=== PATIENT | female | born 1990 | race Caucasian/White ===

== ENCOUNTER 2018-01-10 23:17 | Emergency (ER) | payer OTHER ==
[2018-01-11] MEDS ORDERED: SODIUM CHLORIDE 0.9% 1,000 ML IV STA (00:41)
[2018-01-11] MEDS ORDERED: ONDANSETRON 4 MG/2 ML VIAL IVP STA (00:41)
[2018-01-11] MEDS ORDERED: KETOROLAC 30 MG/ML 1 ML VIAL IVP STA (00:41)
--- NOTE | 2018-01-11 00:57 | ED ---
Abdominal Pain HPI - General Source: patient Mode of arrival: wheelchair Limitations: physical limitation <Estrella Laguna - Last Filed: 01/11/18 02:39> <Quique Concepcion - Last Filed: 01/11/18 04:53> - General Chief Complaint: Abdominal Pain Stated Complaint: Chest and abd pain Time Seen by Provider: 01/11/18 00:25 - History of Present Illness Initial Comments: 27-year-old female patient presents to the emergency department today for evaluation of multiple complaints. Patient states that for the last 3 days she has been experiencing right-sided abdominal pain and diarrhea. Patient states that she is also experiencing shooting "nerve pains" throughout her body. Patient states that the nerve pain has been going on for quite some time but seems to be getting worse. Patient states that the pain is in her right lower quadrant and right flank. Patient states the pain into her abdomen versus when she urinates. She denies any hematuria, dysuria, urinary frequency, urinary urgency. Patient is also reporting midepigastric discomfort that has been going on for quite some time as well. She is unable to give an exact estimated on timeframe. Patient states that she wakes up every morning with nausea and also has burning sharp pain to the midepigastric region especially with eating. She denies any fevers or chills. Denies any chance of . States her last period was 12/25/2017. Denies any abnormal vaginal bleeding or discharge. Denies any dyspareunia. Patient is also complaining of depression. States that she has been depressed for many months. States she is suicidal. She states "I am sick of living like this and wished someone would just kill me". Patient states that she has had increased anxiety and mood swings. Denies taking anything currently for depression, anxiety, or seeking counseling. ( Estrella Laguna) - Related Data Previous Rx's Medication Instructions Recorded HYDROcodone/APAP 5-325MG [[place] 5] 1 each PO Q4HR PRN #12 tab 02/02/15 Allergies Allergy/AdvReac Type Severity Reaction Status Date / Time clonazepam [From Klonopin] Allergy Swelling Verified 01/10/18 23:28 lorazepam [From Ativan] AdvReac Diarrhea Verified 01/10/18 23:28 Review of Systems ROS Other: All systems not noted in ROS Statement are negative. <Estrella Laguna - Last Filed: 01/11/18 02:39> ROS Other: All systems not noted in ROS Statement are negative. <Quique Concepcion - Last Filed: 01/11/18 04:53> ROS Statement: Those systems with pertinent positive or pertinent negative responses have been documented in the HPI. Past Medical History Past Medical History: No Reported History Additional Past Medical History / Comment(s): glaucoma melissa disease, History of Any Multi-Drug Resistant Organisms: None Reported Past Surgical History: Section Past Psychological History: Anxiety, Bipolar, Depression Smoking Status: Current every day smoker Past Alcohol Use History: None Reported Past Drug Use History: Marijuana <Estrella Laguna - Last Filed: 01/11/18 02:39> General Exam Limitations: physical limitation General appearance: alert, in no apparent distress, other (This is a well- developed, well-nourished adult female patient in no acute distress. Vital signs upon presentation are temperature 98.1F, pulse 95, respirations 18, blood pressure 107/68, pulse ox 99% on room air.) Eye exam: Present: normal appearance, PERRL, EOMI. Absent: scleral icterus, conjunctival injection, periorbital swelling ENT exam: Present: normal exam, normal oropharynx, mucous membranes moist Neck exam: Present: normal inspection. Absent: tenderness, meningismus, lymphadenopathy Respiratory exam: Present: normal lung sounds bilaterally. Absent: respiratory distress, wheezes, rales, rhonchi, stridor Cardiovascular Exam: Present: regular rate, normal rhythm, normal heart sounds. Absent: systolic murmur, diastolic murmur, rubs, gallop, clicks GI/Abdominal exam: Present: soft, tenderness (right lower quadrant tenderness), normal bowel sounds. Absent: distended, guarding, rebound, rigid Back exam: Present: normal inspection. Absent: CVA tenderness (R), CVA tenderness (L) Neurological exam: Present: alert, oriented X3, CN II-XII intact Psychiatric exam: Present: normal affect, normal mood Skin exam: Present: warm, dry, intact, normal color. Absent: rash <Estrella Laguna - Last Filed: 01/11/18 02:39> Vital Signs 01/10/18 01/11/18 23:22 01:18 Temperature 98.1 F Pulse Rate 95 Respiratory 18 16 Rate Blood Pressure 107/68 O2 Sat by Pulse 99 Oximetry Medical Decision Making - Lab Data Result diagrams: 01/11/18 00:52 01/11/18 00:52 <Estrella Laguna - Last Filed: 01/11/18 02:39> - Lab Data Result diagrams: 01/11/18 00:52 01/11/18 00:52 <Quique Concepcion - Last Filed: 01/11/18 04:53> - Medical Decision Making 0215: 27-year-old female patient presents to the emergency department today for complaints of generalized abdominal pain mostly over the midepigastric region and the right flank. Physical examination did reveal some mild right-sided abdominal tenderness with some midepigastric tenderness. Labs reviewed and are relatively unremarkable. Patient symptoms are consistent with a gastritis or peptic ulcer disease as she does feel nauseated in the mornings and her pain worsens after eating. She is advised to take Pepcid [id number] at least once daily. She is instructed to follow-up outpatient with gastroenterology for further evaluation and possible endoscopy. Patient is also complaining of suicidal ideation. She is medically clear at this time, EPS has been notified that she is ready for evaluation. (Estrella Laguna) - Lab Data Lab Results 01/10/18 01/10/18 01/11/18 Range/Units 23:29 23:29 00:52 WBC (3.8-10.6) k/uL RBC (3.80-5.40) m/uL Hgb (11.4-16.0) gm/dL Hct (34.0-46.0) % MCV (80.0-100.0) fL MCH (25.0-35.0) pg MCHC (31.0-37.0) g/dL RDW (11.5-15.5) % Plt Count (150-450) k/uL Neutrophils % % Lymphocytes % % Monocytes % % Eosinophils % % Basophils % % Neutrophils # (1.3-7.7) k/uL Lymphocytes # (1.0-4.8) k/uL Monocytes # (0-1.0) k/uL Eosinophils # (0-0.7) k/uL Basophils # (0-0.2) k/uL Sodium 138 (137-145) mmol/L Potassium 4.2 (3.5-5.1) mmol/L Chloride 107 (98-107) mmol/L Carbon Dioxide 24 (22-30) mmol/L Anion Gap 7 mmol/L BUN 12 (7-17) mg/dL Creatinine 0.73 (0.52-1.04) mg/dL Est GFR (CKD-EPI)AfAm >90 (>60 ml/min/1.73 sqM) Est GFR (CKD-EPI)NonAf >90 (>60 ml/min/1.73 sqM) Glucose 90 (74-99) mg/dL Calcium 8.9 (8.4-10.2) mg/dL Total Bilirubin 0.4 (0.2-1.3) mg/dL AST 22 (14-36) U/L ALT 39 (9-52) U/L Alkaline Phosphatase 38 (38-126) U/L Total Protein 6.4 (6.3-8.2) g/dL Albumin 4.1 (3.5-5.0) g/dL Amylase 54 (30-110) U/L Lipase 73 (23-300) U/L TSH 1.530 (0.465-4.680) mIU/L Urine Color Yellow Urine Appearance Cloudy H (Clear) Urine pH 6.0 (5.0-8.0) Ur Specific [place] 1.024 (1.001-1.035) Urine Protein Trace H (Negative) Urine Glucose (UA) Negative (Negative) Urine Ketones Negative (Negative) Urine Blood Negative (Negative) Urine Nitrite Negative (Negative) Urine Bilirubin Negative (Negative) Urine Urobilinogen 2.0 (<2.0) mg/dL Ur Leukocyte Esterase Negative (Negative) Urine RBC 1 (0-5) /hpf Urine WBC 4 (0-5) /hpf Ur Squamous Epith Cells 16 H (0-4) /hpf Urine Bacteria Rare H (None) /hpf Urine Mucus Few H (None) /hpf Urine HCG, Qual Not Detected (Not Detectd) Urine Opiates Screen Not Detected (NotDetected) Ur Oxycodone Screen Not Detected (NotDetected) Urine Methadone Screen Not Detected (NotDetected) Ur Propoxyphene Screen Not Detected (NotDetected) Ur Barbiturates Screen Not Detected (NotDetected) U Tricyclic Antidepress Not Detected (NotDetected) Ur Phencyclidine Scrn Not Detected (NotDetected) Ur Amphetamines Screen Not Detected (NotDetected) U Methamphetamines Scrn Not Detected (NotDetected) U Benzodiazepines Scrn Not Detected (NotDetected) Urine Cocaine Screen Not Detected (NotDetected) U Marijuana (THC) Screen Detected H (NotDetected) Serum Alcohol <10 mg/dL 01/11/18 Range/Units 00:52 WBC 7.7 (3.8-10.6) k/uL RBC 4.32 (3.80-5.40) m/uL Hgb 13.2 (11.4-16.0) gm/dL Hct 40.6 (34.0-46.0) % MCV 94.0 (80.0-100.0) fL MCH 30.5 (25.0-35.0) pg MCHC 32.5 (31.0-37.0) g/dL RDW 12.4 (11.5-15.5) % Plt Count 232 (150-450) k/uL Neutrophils % 56 % Lymphocytes % 34 % Monocytes % 5 % Eosinophils % 3 % Basophils % 1 % Neutrophils # 4.3 (1.3-7.7) k/uL Lymphocytes # 2.7 (1.0-4.8) k/uL Monocytes # 0.4 (0-1.0) k/uL Eosinophils # 0.2 (0-0.7) k/uL Basophils # 0.0 (0-0.2) k/uL Sodium (137-145) mmol/L Potassium (3.5-5.1) mmol/L Chloride (98-107) mmol/L Carbon Dioxide (22-30) mmol/L Anion Gap mmol/L BUN (7-17) mg/dL Creatinine (0.52-1.04) mg/dL Est GFR (CKD-EPI)AfAm (>60 ml/min/1.73 sqM) Est GFR (CKD-EPI)NonAf (>60 ml/min/1.73 sqM) Glucose (74-99) mg/dL Calcium (8.4-10.2) mg/dL Total Bilirubin (0.2-1.3) mg/dL AST (14-36) U/L ALT (9-52) U/L Alkaline Phosphatase (38-126) U/L Total Protein (6.3-8.2) g/dL Albumin (3.5-5.0) g/dL Amylase (30-110) U/L Lipase (23-300) U/L TSH (0.465-4.680) mIU/L Urine Color Urine Appearance (Clear) Urine pH (5.0-8.0) Ur Specific [place] (1.001-1.035) Urine Protein (Negative) Urine Glucose (UA) (Negative) Urine Ketones (Negative) Urine Blood (Negative) Urine Nitrite (Negative) Urine Bilirubin (Negative) Urine Urobilinogen (<2.0) mg/dL Ur Leukocyte Esterase (Negative) Urine RBC (0-5) /hpf Urine WBC (0-5) /hpf Ur Squamous Epith Cells (0-4) /hpf Urine Bacteria (None) /hpf Urine Mucus (None) /hpf Urine HCG, Qual (Not Detectd) Urine Opiates Screen (NotDetected) Ur Oxycodone Screen (NotDetected) Urine Methadone Screen (NotDetected) Ur Propoxyphene Screen (NotDetected) Ur Barbiturates Screen (NotDetected) U Tricyclic Antidepress (NotDetected) Ur Phencyclidine Scrn (NotDetected) Ur Amphetamines Screen (NotDetected) U Methamphetamines Scrn (NotDetected) U Benzodiazepines Scrn (NotDetected) Urine Cocaine Screen (NotDetected) U Marijuana (THC) Screen (NotDetected) Serum Alcohol mg/dL Disposition <Estrella Laguna - Last Filed: 01/11/18 02:39> Is patient prescribed a controlled substance at d/c from ED?: No <Quique Concepcion - Last Filed: 01/11/18 04:53> Clinical Impression: Abdominal pain, Mood disorder Disposition: HOME SELF-CARE Condition: Good Instructions: Abdominal Pain (ED), Mood Disorders (ED) Referrals: None,Stated [Primary Care Provider] - 1-2 days
[2018-01-11 01:08] LABS: Basophils % (A) 1 %; Eosinophils # (A) 0.2 k/uL (0-0.7); Eosinophils % (A) 3 %; HCT 40.6 % (34.0-46.0); HGB 13.2 gm/dL (11.4-16.0); Lymphocytes # (A) 2.7 k/uL (1.0-4.8); Lymphocytes % (A) 34 %; MCH 30.5 pg (25.0-35.0); MCHC 32.5 g/dL (31.0-37.0); Mean Platelet Volume 7.4; Monocytes # (A) 0.4 k/uL (0-1.0); Monocytes % (A) 5 %; Neutrophils # (A) 4.3 k/uL (1.3-7.7); Neutrophils % (A) 56 %; Platelet Count 232 k/uL (150-450); RBC 4.32 m/uL (3.80-5.40); RDW 12.4 % (11.5-15.5); WBC 7.7 k/uL (3.8-10.6)
[2018-01-11 01:13] LABS: Appearance,Urine Cloudy (Clear); Bacteria,Urine Rare /hpf; Bilirubin,Urine Negative (Negative); Blood,Urine Negative (Negative); Color,Urine Yellow; Glucose,Urine (UA) Negative (Negative); Ketones,Urine Negative (Negative); Leukocyte Esterase,Urine Negative (Negative); Mucus,Urine Few /hpf; Nitrite,Urine Negative (Negative); Protein,Urine Trace (Negative); RBC,Urine 1 /hpf (0-5); Specific Gravity,Urine 1.024 (1.001-1.035); Squamous Epithelial Cell,Urine 16 /hpf (0-4); WBC,Urine 4 /hpf (0-5)
[2018-01-11 01:18] VITALS: RESP 16
[2018-01-11 01:25] LABS: ALT 39 U/L (9-52); AST 22 U/L (14-36); Albumin 4.1 g/dL (3.5-5.0); Alcohol <10 mg/dL; Alkaline Phosphatase 38 U/L (38-126); Amylase 54 U/L (30-110); Anion Gap 7 mmol/L; Blood Urea Nitrogen 12 mg/dL (7-17); Calcium 8.9 mg/dL (8.4-10.2); Carbon Dioxide 24 mmol/L (22-30); Chloride 107 mmol/L (98-107); Glucose 90 mg/dL (74-99); Lipase 73 U/L (23-300); Potassium 4.2 mmol/L (3.5-5.1); Sodium 138 mmol/L (137-145); Total Bilirubin 0.4 mg/dL (0.2-1.3); Total Protein 6.4 g/dL (6.3-8.2)
--- NOTE | 2018-01-11 01:37 | XR ---
EXAMINATION TYPE: XR KUB DATE OF EXAM: 01/11/2018 COMPARISON: 09/14/2011 HISTORY: Nausea TECHNIQUE: 2 views upright FINDINGS: Bowel gas pattern is normal. There is no sign of intestinal obstruction or pneumoperitoneum . Fecal pattern is normal. Lung bases are clear. There are no pathologic calcifications. IMPRESSION: Nonacute abdomen. No change.
[2018-01-11 01:39] LABS: Amphetamine Screen,Urine Not Detected (NotDetected); Barbiturate Screen,Urine Not Detected (NotDetected); Benzodiazepines Screen,Urine Not Detected (NotDetected); Cocaine Screen,Urine Not Detected (NotDetected); Methadone Screen, Urine Not Detected (NotDetected); Opiate Screen,Urine Not Detected (NotDetected); Oxycodone Screen, Urine Not Detected (NotDetected); Phencyclidine Screen,Urine Not Detected (NotDetected); Tricyclic Antidepressant,Urine Not Detected (NotDetected); Urn Cannabinoid Scrn Detected (NotDetected)
[2018-01-11 06:03] VITALS: BP 102/60; PULSE 76; TEMP 97.1
== END 2018-01-11 06:04 | disposition home or self-care (01) ==
LOC: EC 23:17
DX: F32.9 Major depressive disorder, single episode, unspecified (principal); R10.13 Epigastric pain; R10.31 Right lower quadrant pain; R19.7 Diarrhea, unspecified; R11.0 Nausea; R45.851 Suicidal ideations; F41.9 Anxiety disorder, unspecified; F17.200 Nicotine dependence, unspecified, uncomplicated; Z88.8 Allergy status to other drugs, medicaments and biological substances
CPT/HCPCS: 36415; 80053; 84443; 82150; 83690; 85025; 81001; 81025; 80306; 74018; 99284; 96374; 96375; 96361; G0480; J2405; J1885; 80320

== ENCOUNTER → 2018-12-20 | Outpatient (CLI) | payer OTHER ==
--- NOTE | 2018-12-20 08:16 | US ---
EXAMINATION TYPE: US gallbladder DATE OF EXAM: 12/20/2018 COMPARISON: NONE CLINICAL HISTORY: Gastritis K29.70. Intermittent abdomen pain and N/V x couple years EXAM MEASUREMENTS: Liver Length: 14.0 cm Gallbladder Wall: 0.2 cm CBD: 0.5 cm Right Kidney: 9.1 x 3.8 x 4.3 cm Pancreas: visualized portions wnl, limited by overlying midline bowel gas Liver: wnl Gallbladder: wnl Evidence for sonographic De La Torre's sign: no CBD: wnl Right Kidney: wnl IMPRESSION: No sonographic evidence of cholelithiasis nor acute cholecystitis. Pancreas is suboptimal ly visualized as it is partially secured by overlying bowel gas.
== END | disposition home or self-care (01) ==
LOC: RADUSWWP 07:44
PROVIDERS: ATTEND Family Medicine
DX: K29.70 Gastritis, unspecified, without bleeding (principal)
CPT/HCPCS: 76705

== ENCOUNTER → 2019-01-04 | Outpatient (CLI) | payer OTHER ==
--- NOTE | 2019-01-04 14:03 | NM ---
EXAMINATION TYPE: NM hepatobiliary w EF DATE OF EXAM: 01/04/2019 COMPARISON: NONE INDICATION: Right upper quadrant pain TECHNIQUE: After the intravenous administration of 4 mCi Tc 99m Mebrofenin hepatobiliary scintigraphy is performed. Images were obtained immediately post injection. FINDINGS: There is prompt uptake and excretion of radiotracer by the liver. Extrahepatic ducts are identified at 7 minutes. The gallbladder is visualized within 16 minutes. Small bowel activity is noted within 11 minutes. At one hour 8 ounces of oral ensure plus is given to mimic CCK and gallbladder ejection fraction is c alculated at 57 %, which is in the normal range. (Normal >35% and <80%.). IMPRESSION: 1. Normal hepatobiliary scan
== END | disposition home or self-care (01) ==
LOC: RADNMMAIN 07:37
PROVIDERS: ATTEND Family Medicine
DX: R10.11 Right upper quadrant pain (principal)
CPT/HCPCS: 78226; A9537

== ENCOUNTER → 2021-01-28 | Outpatient (CLI) | payer BC ==
[2021-01-28 22:50] LABS: Basophils # (A) 0.05 X 10*3/uL (0.00-0.10); Basophils % (A) 0.7 %; Eosinophils # (A) 0.16 X 10*3/uL (0.04-0.35); Eosinophils % (A) 2.4 %; HCT 44.7 % (37.2-46.3); HGB 14.4 g/dL (12.0-15.0); Lymphocytes # (A) 2.19 X 10*3/uL (0.90-5.00); Lymphocytes % (A) 32.2 %; MCH 30.4 pg (27.0-32.0); MCHC 32.2 g/dL (32.0-37.0); MCV 94.5 fL (80.0-97.0); Mean Platelet Volume 10.9 fL (9.5-12.2); Monocytes # (A) 0.54 X 10*3/uL (0.20-1.00); Monocytes % (A) 7.9 %; Neutrophils # (A) 3.85 X 10*3/uL (1.80-7.70); Neutrophils % (A) 56.7 %; Platelet Count 236 X 10*3/uL (140-440); RBC 4.73 X 10*6/uL (4.10-5.20); RDW 13.3 % (11.5-14.5)
[2021-01-29 09:58] LABS: African American GFR (CKD) 113.9 (60.0-200.0); Albumin 5.2 g/dL (3.80-4.90); Albumin/Globulin Ratio 2.36 (1.60-3.17); Anion Gap 13.8 mmol/L (4.00-12.00); Calcium 9.6 mg/dL (8.7-10.3); Carbon Dioxide 20.2 mmol/L (21.6-31.8); Globulin 2.2 g/dL (1.6-3.3); Non-African American GFR(CKD) 98.2 (60.0-200.0); Potassium 4.2 mmol/L (3.5-5.5); Total Bilirubin 1.5 mg/dL (0.3-1.2); Total Protein 7.4 g/dL (6.2-8.2)
[2021-01-29 10:38] LABS: Angiotensin-1 Converting Enz. 13 U/L (8-52)
== END | disposition home or self-care (01) ==
LOC: LABWHC1 15:21
PROVIDERS: ATTEND Ophthalmology
DX: H00-H59 Diseases of the eye and adnexa (principal)
CPT/HCPCS: 36415; 80053; 82164; 85025; 85549; 86480; 86780

== ENCOUNTER → 2021-12-31 | Outpatient (CLI) | payer BC ==
--- NOTE | 2021-12-31 16:22 | XR ---
EXAMINATION TYPE: XR lumbar spine 2 or 3V DATE OF EXAM: 12/31/2021 4:16 PM INDICATION: Patient age:Female; 31 years old; Reason for study: Rt Foot M79.671 Back Pain M54.50; [facility]. COMPARISON: 09/08/2012 TECHNIQUE: Frontal, lateral and coned in L5-S1 lateral views of the spine. FINDINGS: No evidence of any acute osseous pathology. No evidence of loss of vertebral body height i s seen. There is normal alignment of the lumbar vertebral bodies. No significant degeneration changes throughout the spine. IMPRESSION: 1. No acute fracture. 2. Mild multilevel disc degeneration.
--- NOTE | 2021-12-31 16:26 | XR ---
EXAMINATION TYPE: XR foot complete RT DATE OF EXAM: 12/31/2021 4:16 PM INDICATION: Patient age:Female; 31 years old; Reason for study: Rt Foot M79.671 Back Pain M54.50; [facility]. COMPARISON: 01/09/2021 TECHNIQUE: The right foot was examined in the AP, oblique, and lateral projections. FINDINGS: No evidence of any acute osseous pathology. No evidence of soft tissue swelling. Joints are preserve d. IMPRESSION: No evidence of acute fracture.
== END | disposition home or self-care (01) ==
LOC: RADXRMAIN 15:55
PROVIDERS: ATTEND Family Medicine
DX: M51.36 Other intervertebral disc degeneration, lumbar region (principal); M79.671 Pain in right foot
CPT/HCPCS: 72100

== ENCOUNTER → 2024-04-25 | Outpatient (CLI) | payer BC, OTHER ==
--- NOTE | 2024-04-25 12:52 | MR ---
EXAMINATION TYPE: MR orbits wo/w con DATE OF EXAM: 04/25/2024 11:47 AM COMPARISON: 02/02/2015. CLINICAL INDICATION: Female, 34 years old with history of H40.05 OCULAR HYPERTENSION, UNSPECIFIED EYE ; [facility], Ocular hypertension, Head pressure, Migraines, Bilat arm/finger tingling, High glaucoma, Retin al detachment, Dizziness, Past head trauma TECHNIQUE: Multi planar, multi sequence imaging was performed through the orbits/face. Post contrast imaging was performed after the administration of 6 mL Gadobutrol FINDINGS: The globes appear symmetrical. Orbital contents are intact. Signal intensity of the optic nerves are within normal limits. The intraorbital fat appears preserved. Both lacrimal glands are u nremarkable. The extraocular muscles appear symmetric. After administration of contrast, no abnormal enhancement is seen. The bone marrow signal is within normal limits. Paranasal sinuses and mastoid air cells: No significant paranasal sinus disease. Trace right mastoid air cell high T2 signal. Visualized orbits: Orbital contents are intact. IMPRESSION: No evidence of intraorbital mass or significant abnormality. Globes are symmetrical. [facility], , 04/25/2024 12:49 PM
== END | disposition home or self-care (01) ==
LOC: RADMRIMAIN 10:32
PROVIDERS: ATTEND Family Medicine
DX: H40.059 Ocular hypertension, unspecified eye (principal); H57.13 Ocular pain, bilateral; G43.909 Migraine, unspecified, not intractable, without status migrainosus
CPT/HCPCS: 70543; A9585